=== PATIENT | female | born 1985 | race Caucasian/White ===

== ENCOUNTER 2024-10-06 10:26 | Outpatient (OUT) | payer OTHER, SELFPAY ==
--- OUTSIDE RECORDS SUMMARY | 2024-10-02 20:03 | XMS_ITS | Continuity of Care Document ---
Author Organization [facility] Address [address] [place] [address] Phone Care Team Providers Care Stripper [employer] O[employer] Apprentice Name Role Phone Kashif Theodore DO Primary Care Provider Zev Olivarez DO Emergency Provider [phone] Care Teams Patient Care Team Team Status: Active Member Role Status Dates Kashif Theodore DO Primary Care Provider Active Patient Care Team Team Status: Inactive Member Role Status Dates Kashif Theodore DO Primary Care Provider Active Sta rt: October 02, 2024 End: October 03, 2024 Zev Olivarez DO Emergency Provider Active St art: October 02, 2024 End: October 03, 2024 Chief Complaint and Reason for Visit Chief Complaint Admit Date left knee injury-fall October 02, 2024 9: 59pm Allergies, Adverse Reactions, Alerts Allergen Type Severity Reaction Last Updated Verified Status bupropion Allergy Unknown angry October 02 10:08pm Yes Active adhesive tape Allergy Unknown welts October 02, 2024 10:08pm Yes Active bacitracin Allergy Unknown Rash October 02 10:08pm Yes Active ethinyl estradiol Allergy Unknown Hives October 022024 10:08pm Yes Active neomycin Allergy Unknown Rash October 02 10:08pm Yes Active norgestimate Allergy Unknown Hives October 02, 025 10:08pm Yes Active polymyxin B Allergy Unknown Rash October 02 10:08pm Yes Active red dye Allergy Unknown Anaphylaxis October 02 10:08pm Yes Active Sulfa (Sulfonamide Antibiotics) Allergy Unknown Rash October 02, 2024 10:08pm Yes Active Social History Smoking Status Status Start Date End Date Date of Observa tion Never smoked tobacco (finding) October 02, 2024 11:37pm Observation Status Observation Response Date of Response Legal Sex Female (finding) Sex Assigned At Female [birth year] Status N October 02, 2024 Family History Relationship Condition Age at Onset Recorded Date/T juan aunt Obesity Unknown father Chronic mental illness Unknown Malignant neoplasm of colon Unknown Seizure Unknown Family history of me ntal disorder Unknown Malignant neoplasm Unknown Cerebrovascular accident (CVA) Unknown grandparent Obesity Unknown mother Asthma Unknown maternal grandmother Chronic mental illness Unknown maternal grandfather Heart disease Unknown Malignant neoplasm Unknown paternal grandfather Malignant neoplasm Unknown paternal grandmother Chronic mental illness Unknown Problems Active Problems Medical Problem Onset Date Status Comments Postoperative pain of extremity Unknown Active assisted (current) use of i nhaled steroids Unknown Active Other specified postprocedural states Unknown Act tami Left carpal tunnel syndrome Unknown Active Mild intermittent asthma, uncomplicated Unknown Active Mild persistent asthma, uncomplicated Unknown Act tami PFT: 06/15/2020-FEV1/FVC: 77%-FEV1: 94%-FVC: 103%-OQT95-93%: 68%-Bronchodilator response: None-RV: 80%-T%-DLCO: 79% Family history of colon cancer Unknown Active father paternal uncle Knee sprain Unknown Active Allergic rhinitis due to pollen Unknown Active Palpitations Unknown Active Depression Unknown Active Seasonal allergies Unknown Active Annual physical exam Unknown Active Mixed hyperlipidemia Unknown Active Mass of left wrist Unknown Active Acute bronchitis Unknown Active BMI 39.0-39.9,adult Unknown Active BMI 40.0-44.9, adult Unknown Active Left wrist pain Unknown Active Abnormal finding on mammography Unknown Active Obesity Unknown Active Persistent cough Unknown Active Asthma Unknown Active Attention deficit Unknown Active Inactive/Resolved Problems Medical Problem Onset Date Status Comments Nausea vomiting and diarrhea Unknown Resolved Medications Medication Status Dose Units Route Directions Qty Days St art Date Stop Date End Date Instructions Adherence Prednisone 20 mg tablet Discont inued 20 MG PO As Directed June 04, 2023 12:00a m June 17, 2023 8:52a m BID x 5days then daily x 5 days Azithromyci n (Zithromax Z-Juan Pablo) 250 mg tablet Discont inued 0 PO As Directed 6 June 04, 2023 12:00a m June 17, 2023 8:54a m For 250 mg dose pack: take 500 mg today (day 1), then 250 mg for 4 days (days 2-5) orally as directed; Semaglutide (Ozempic) 2 mg/dose (8 mg/3 mL) pen injector Discont inued 2 MG SUBCUT Once a week 3 June 17, 2023 8:59am August 05, 2023 2:09p m Epinephrine 0.3 mg/0.3 mL auto-inject or Active 0.3 MG IM Every 4 hours as needed for anaphylaxis 2 August 01, 2023 11:02a m Unknown Albuterol Sulfate 90 mcg/actuati on HFA aerosol inhaler Discont inued 2 PUFF INHALA TION Every 6 hours 8.5 August 01, 2023 11:02a m August 05, 2023 2:30p m Omeprazole 20 mg capsule,del ayed release(DR/ EC) Discont inued 20 MG PO Daily 90 August 01, 2023 11:03a m Augus t 2023 1:23p m Azithromyci n (Zithromax Z-Juan Pablo) 250 mg tablet Discont inued 0 PO .COMPLEX 6 2024 1:00am June 08, 2024 1:47p m For 250 mg dose pack: take 500 mg today (day 1), then 250 mg for 4 days (days 2-5) PO Benzonatate 150 mg capsule Discont inued 150 MG PO Three times daily as needed for cough 2024 1:00am 2024 7:45a m Benzonatate 200 mg capsule Discont inued 200 MG PO Three times daily as needed for cough 30 2024 1:00am June 08, 2024 1:47p m Betamethaso ne Valerate 0.1 % cream Discont inued 1 APPLIC TOPICA L Three times daily 45 2024 1:00am May 26, 2024 2:08p m Betamethaso ne Valerate 0.1 % cream Active 1 APPLIC TOPICA L Three times daily 45 May 26, 2024 2:08pm Unknown Prednisone 20 mg tablet Discont inued 20 MG PO .COMPLEX June 02, 2024 12:00a m June 08, 2024 2:05p m 20 mg orally BID x 5 DAYS, QD X 5 DAYS; Benzonatate 200 mg capsule Discont inued 200 MG PO 2-3 TIMES PER DAY as needed for cough June 02, 2024 12:00a m June 08, 2024 2:03p m Cyclobenzap rine 10 mg tablet Active 5 MG PO Daily at bedtime as needed for muscle spasm June 15, 2024 3:20pm Unknown Fluticasone -Umeclidin- Vilanter (Trelegy Ellipta) 200-62.5-25 mcg blister with device Active 1 INH INHALA TION Daily June 15, 2024 3:20pm Unknown Prednisone 20 mg tablet Active 20 MG PO .COMPLEX September 28, 2024 12:00a m 20 mg orally BID for five days, QD for five days; Unknown Prochlorper azine (Compazine) 25 mg suppository Discont inued 25 MG HI Twice daily as needed for nausea and vomiting June 26, 2023 12:00a m Octob er 2023 2:59p m Omeprazole 20 mg capsule,del ayed release(DR/ EC) Discont inued 20 MG PO Every morning 2023 12:00a m Octob er 2023 2:20p m Montelukast (Singulair) 10 mg tablet Discont inued 10 MG PO Every morning 2023 12:00a m Octob er 2023 2:20p m Duloxetine 60 mg capsule,del ayed release(DR/ EC) Discont inued 60 MG PO Every morning 2023 12:00a m Octob er 2023 2:20p m Budesonide- Formoterol (Symbicort) 80-4.5 mcg/actuati on HFA aerosol inhaler Active 2 PUFF INHALA TION Every morning 2023 12:00a m Rinse after use; Dispense #3 inhalers Unknown Acetaminoph en (Acetaminop hen Extra Strength) 500 mg tablet Discont inued 500 MG PO Every 6 hours as needed for fever or pain grace 2023 12:00a m June 08, 2024 2:04p m Loratadine (Allergy Relief (Loratadine )) 10 mg tablet Active 10 MG PO Every morning 2023 12:00a m Unknown Hydrocodone -Acetaminop hen 5-325 mg tablet Discont inued 1 - 2 TAB PO EVERY 4-6 HOURS as needed for pain 30 4 Decobe r 2023June 08, 2024 2:09p m Ciprofloxac in Hcl 500 mg tablet Discont inued 500 MG PO Twice daily 6 3 Decobe r 2023 12:00a m Octob er 2023 7:34a m Semaglutide (Ozempic) 1 mg/dose (4 mg/3 mL) pen injector Discont inued 1 MG SUBCUT every week August 20, 2023 12:00a m Septe mber 2023 9:25a m 18 clicks for 4 weeks and then increase to 36 clicks for 4 weeks and can then increase up to 1 mg dose. Albuterol Sulfate 90 mcg/actuati on HFA aerosol inhaler Discont inued 2 PUFF INHALA TION Every 6 hours 8.5 August 01, 2023 7:39am August 01, 2023 11:03 am Epinephrine 0.3 mg/0.3 mL auto-inject or Discont inued 0.3 MG IM Every 4 hours as needed for anaphylaxis 2 August 01, 2023 7:39am August 01, 2023 11:03 am Omeprazole 20 mg capsule,del ayed release(DR/ EC) Discont inued 20 MG PO Daily August 01, 2023 7:40am August 01, 2023 11:03 am Phentermine (Adipex-P) 37.5 mg tablet Discont inued 37.5 MG PO Daily 30 30 Octobe r 2023 12:00a m Octob er 2023 2:19p m must administer 30 minutes before or 1-2 hours after breakfast Phentermine (Adipex-P) 37.5 mg tablet Discont inued 37.5 MG PO Daily 30 30 2023 2:19pm June 08, 2024 2:07p m must administer 30 minutes before or 1-2 hours after breakfast Duloxetine 60 mg capsule,del ayed release(DR/ EC) Active 60 MG PO Every morning r 2023 2:19pm Unknown Omeprazole 20 mg capsule,del ayed release(DR/ EC) Active 20 MG PO Every morning r 2023 2:19pm Unknown Montelukast (Singulair) 10 mg tablet Active 10 MG PO Every morning r 2023 2:20pm Unknown Levofloxaci n 500 mg tablet Active 500 MG PO Daily 10 June 08, 2024 12:00a m Unknown Hydrocodone -Homatropin e 5-1.5 mg/5 mL (5 mL) syrup Active 5 ML PO EVERY 4-6 HOURS as needed for cough 120 7 June 08, 2024 Unknown Fluticasone -Umeclidin- Vilanter (Trelegy Ellipta) 200-62.5-25 mcg blister with device Discont inued 1 INH INHALA TION Daily June 08, 2024 12:00a m June 15, 2024 3:20p m * 1 sample given Prednisone 20 mg tablet Discont inued 20 MG PO .COMPLEX June 08, 2024 2:05pm September 28, 2024 11:21 am 20 mg orally BID x 7 DAYS, QD X 7 DAYS; Budesonide- Formoterol (Symbicort) 80-4.5 mcg/actuati on HFA aerosol inhaler Discont inued 2 PUFF INHALA TION Daily 30.6 August 05, 2023 2:22pm Septe mber 2023 9:25a m Rinse after use; Dispense #3 inhalers Montelukast (Singulair) 10 mg tablet Discont inued 10 MG PO Daily 90 August 05, 2023 2:23pm Augus t 2023 1:21p m Albuterol-B udesonide (Airsupra) 90-80 mcg/actuati on HFA aerosol inhaler Discont inued 2 INH INHALA TION Four times daily as needed for shortness of breath or wheezing 10.7 30 August 05, 2023 12:00a m June 08, 2024 2:03p m Dispense #1 inhaler Azelastine 205.5 mcg (0.15 %) spray,non-a erosol Discont inued 2 SPRAY INTRAN JERRICA Twice daily 90 90 August 05, 2023 12:00a m Septe mber 2023 9:23a m 2 squirts each nostril twice daily Albuterol Sulfate 90 mcg/actuati on HFA aerosol inhaler Discont inued 2 PUFF INHALA TION Q4H as needed for shortness of breath or wheezing 25.5 90 August 05, 2023 2:29pm August 20, 2023 10:23 am Albuterol Sulfate 5 mg/mL solution for nebulizatio n Active 5 MG INHALA TION Daily as needed for shortness of breath or wheezing June 17, 2023 12:00a m Unknown Albuterol Sulfate 90 mcg/actuati on HFA aerosol inhaler Discont inued 2 PUFF INHALA TION Every 6 hours June 17, 2023 12:00a m August 01, 2023 7:40a m Diphenhydra mine Hcl (Benadryl) 25 mg capsule Discont inued 25 MG PO every 6 to 8 hours as needed for allergic reaction June 17, 2023 12:00a m June 08, 2024 2:03p m Duloxetine 60 mg capsule,del ayed release(DR/ EC) Discont inued 60 MG PO Daily June 17, 2023 12:00a m Octus t 2023 1:21p m Epinephrine 0.3 mg/0.3 mL auto-inject or Discont inued 0.3 MG IM Every 4 hours as needed June 17, 2023 12:00a m August 01, 2023 7:40a m Cyclobenzap rine 10 mg tablet Discont inued 5 MG PO Daily at bedtime as needed for muscle spasm June 17, 2023 12:00a m June 15, 2024 3:20p m Ibuprofen 800 mg tablet Discont inued 800 MG PO Three times daily as needed June 17, 2023 12:00a m Augus t 2023 1:21p m Lorazepam 0.5 mg tablet Discont inued 0.5 MG PO Daily at bedtime as needed June 17, 2023 12:00a m [facility] 2023 9:24a m Norgestrel- Ethinyl Estradiol (Low-Ogestr el (28)) 0.3-30 mg-mcg tablet Active 1 TAB PO Daily June 17, 2023 12:00a m Unknown Melatonin-P yridoxine (Vit B6) 5-1 mg tablet Active 1 TAB PO Daily at bedtime June 17, 2023 12:00a m Unknown Multivitami n (Daily Multi-Vitam in) tablet Discont inued 1 TAB PO Daily June 17, 2023 12:00a m [facility] 2023 9:24a m Omeprazole 20 mg capsule,del ayed release(DR/ EC) Discont inued 20 MG PO Daily June 17, 2023 12:00a m August 01, 2023 7:40a m Ondansetron Hcl 4 mg tablet Discont inued 4 MG PO every 6 to 8 hours as needed June 17, 2023 12:00a m August 20, 2023 10:23 am Semaglutide (Ozempic) 2 mg/dose (8 mg/3 mL) pen injector Discont inued 2 MG SUBCUT Once a week June 17, 2023 12:00a m June 17, 2023 9:01a m Saccharomyc es Boulardii (Daily Probiotic (S. Boulardii)) 250 mg capsule Active 250 MG PO Daily June 17, 2023 12:00a m Unknown Montelukast (Singulair) 10 mg tablet Discont inued 10 MG PO Daily as needed June 17, 2023 12:00a m August 05, 2023 2:30p m Budesonide- Formoterol (Symbicort) 80-4.5 mcg/actuati on HFA aerosol inhaler Discont inued 2 PUFF INHALA TION Daily June 17, 2023 12:00a m August 05, 2023 2:30p m Ubrogepant 50 mg tablet Discont inued 0 PO .COMPLEX as needed June 17, 2023 12:00a m August 05, 2023 2:10p m 50 mg, may take second dose at least 2 hours after first dose orally PRN; Duloxetine 60 mg capsule,del ayed release(DR/ EC) Discont inued 60 MG PO Daily November 12, 2023 1:14pm [facility] 2023 9:25a m Ibuprofen 800 mg tablet Active 800 MG PO Three times daily as needed for pain November 12, 2023 1:14pm Unknown Montelukast (Singulair) 10 mg tablet Discont inued 10 MG PO Daily November 12, 2023 [facility] 9:25a [facility] Duloxetine 30 mg capsule,del ayed release(DR/ EC) Discont inued 30 MG PO Daily November 12, 2023 12:00a m [facility] 9:23a m in addition to 60 mg capsule Omeprazole 20 mg capsule,del ayed release(DR/ EC) Discont inued 20 MG PO Daily November 12, 2023 1:23pm [facility] 2023 9:25a m Immunizations Immunization Event Date Not Given Reason Dose Number Youth Nutritional Monitor Lot Number Vaccine Information Statement (VIS) Detail Administration Location COVID-19 mRNA-1273 (Moderna) March 09, 2020 [id number] [facility] COVID-19 mRNA-1273 (Moderna) April 06, 2020 [id number] [facility] COVID-19 mRNA-1273 (Moderna) January 10, 2021 [id number] Covid Vaccine COVID-19 mRNA-1273 (Moderna) August 09, 2021 COVID-19 (PFIZER) 12Y and older December 24, 2022 DTap, unspecified November 14, 1992 diphtheria, TT and pertussis vaccine 1987 diphtheria, TT and pertussis vaccine 1987 diphtheria, TT and pertussis vaccine 1987 diphtheria, TT and pertussis vaccine September 14, 1988 Hepatitis B, Recombinant May 09, 2022 Influenza, seasonal, injectable, pf November 14, 2018 Novel Influenza H1N1 January 22, 2009 Measles, Mumps, and Rubella Virus Vaccine July 18, 1988 Measles, Mumps, and Rubella Virus Vaccine May 04, 1999 trivalent poliovirus vaccine, live, oral 1987 trivalent poliovirus vaccine, live, oral 1987 trivalent poliovirus vaccine, live, oral September 14, 1988 trivalent poliovirus vaccine, live, oral November 14, 1992 Quadrivalent Influenza December 21, 2022 Trivalent Influenza Vaccine December 07, 2019 Procedures Procedure Date Performed Status XR knee LT 4V* October 02, 2024 10:09pm complete d Relevant Diagnostic Tests and/or Laboratory Data Diagnostic Imaging Reports Author Yeyo Yeung [facility] Report Date/Time October 02, 2024 10:4 5pm [facility] [place] [address] [place] [address] XRay Report Signed Patient: Noris Sprague MR#: [id number] : 1985 Acct:[id number] Age/Sex: 39 / F ADM Date: Loc: ER Room: Type: PRE ER Attending Dr: Copies to: JONO HART~ Ordering Provider: JONO HART Date of Service: 10/02/24 XR/XR knee LT 4V*: Extremity Injury, Lower XR knee LT 4V* 10/02/2024 10:38 PM SIGNS AND SYMPTOMS: Fall, left knee pain PROTOCOL: Frontal, lateral, and oblique radiographs of the left knee COMPARISON: 06/18/2019 FINDINGS: The weightbearing and patellofemoral joint spaces are preserved. There is no fracture or dislocation. No joint effusion or soft tissue swelling. XR/XR knee LT 4V* IMPRESSION: No fracture or dislocation. Impression dictated by: Yeyo Yeung M.D. 10/02/2024 10:45 PM Dictation Location: [place] [address] Transcribed By: [facility] 10/02/242244 Dictated By: Yeyo Yeung II, MD 10/02/242242 Signed By: <Electronically signed by Yeyo Yeung II, MD in [place]> 10/02/242244 Vital Signs Vital Reading Result Reference Range Collection Date/Time Height 58 [in_i] October 02, 2024 10:08pm Weight 99.79 kg October 02, 2024 10:08pm Body Temperature 97.6 [degF] 97.6-99.0 October 02, 2024 10:08pm Heart Rate 98 /min 60-100 October 02, 2024 10:08pm Respiratory rate 18 /min 12-24 October 02, 2024 10:08pm Oxygen saturation by Pulse oximetry 100 % 95-100 October 02, 2024 10:0 8pm BP Systolic 160 mm[Hg] 100-140 October 02, 2024 10:08pm BP Diastolic 94 mm[Hg] 60-100 October 02, 2024 10:08pm Advance Directives Advance Directive Response Recorded Date/ Time Advance Directives No June 08 1:04pm Insurance Providers Guarantor Murali Castro Address [address] [place] [address] [address] [facility] [address] Contact Info. Home Phone: Payer Policy Id Subscriber's Name Subscriber Id Effectiv e Date Expiration Date [facility] [id number] Encounters Encounter Location(s) Arrival/Admit Date Discharge/Depart Date Provider(s) Departed Emergency -Emergency Room October 02, 2024 9:59pm October 03, 2024 12:02am Plan of Treatment Future Tests Future scheduled test information is unavailable Pending Tests Pending diagnostic test information is unavailable Future Visits Future appointment information is unavailable Referrals to Other Providers Reason for Referral Referral Start Date Provider Provider Contact Information Provider Address Sherri Correia DO Email: Work Phone: [address] [facility] [address] [facility] [address] Lorenzo Bradley Jr DO Work Phone: [address] [facility] [address] [facility] [address] Future Procedures Future procedure information is unavailable Future Medications Future medication information is unavailable Patient Instructions Instruction Admit Date Knee Sprain ED October 02, 2024 9:59 pm
--- NOTE | 2024-10-06 | XR_ITS ---
[place] [id number] Patient Name: DAXA REYES MRN: [id number] date: 1985 Sex: F Assigned Patient Location: [facility] Current Patient Location: [facility] Accession/Order Number: [id number] Exam Date: 10/06/2024 10:57 Report Date: 10/06/2024 11:03 At the request of: PRESTON SWARTZ MD Procedure: XR knee LT 4V Single view of the pelvis plain film HISTORY: Acute left knee pain. Fell. Left knee arthroscopy. COMPARISON: None ACUTE FINDINGS: None BONY ALIGNMENT: Adequate SOFT TISSUES: Unremarkable DEGENERATIVE CHANGE:Unremarkable INTRAPELVIC STRUCTURES: Unremarkable POSTSURGICAL CHANGES:None XR/XR knee RT 2V IMPRESSION:Unremarkable exam. 4 views left knee Standing position. No joint effusion. Adequate alignment. No acute displaced fracture. No significant degeneration. IMPRESSION: Unremarkable exam 2 views right knee Adequate alignment. No acute displaced fracture. No significant degeneration. IMPRESSION: Unremarkable exam Impression dictated by: Renzo Claros M.D. 10/06/2024 11:03 AM Dictation Location: [facility] Electronically authenticated by: [id number] Y Date: 10/06/2024 11:03
--- NOTE | 2024-10-06 | XR_ITS ---
[place] [id number] Patient Name: DAXA REYES MRN: [id number] date: 1985 Sex: F Assigned Patient Location: [facility] Current Patient Location: [facility] Accession/Order Number: [id number] Exam Date: 10/06/2024 10:57 Report Date: 10/06/2024 11:03 At the request of: PRESTON SWARTZ MD Procedure: XR knee LT 4V Single view of the pelvis plain film HISTORY: Acute left knee pain. Fell. Left knee arthroscopy. COMPARISON: None ACUTE FINDINGS: None BONY ALIGNMENT: Adequate SOFT TISSUES: Unremarkable DEGENERATIVE CHANGE:Unremarkable INTRAPELVIC STRUCTURES: Unremarkable POSTSURGICAL CHANGES:None XR/XR knee LT 4V IMPRESSION:Unremarkable exam. 4 views left knee Standing position. No joint effusion. Adequate alignment. No acute displaced fracture. No significant degeneration. IMPRESSION: Unremarkable exam 2 views right knee Adequate alignment. No acute displaced fracture. No significant degeneration. IMPRESSION: Unremarkable exam Impression dictated by: Renzo Claros M.D. 10/06/2024 11:03 AM Dictation Location: [facility] Electronically authenticated by: [id number] Y Date: 10/06/2024 11:03
--- NOTE | 2024-10-06 | XR_ITS ---
[place] [id number] Patient Name: DAXA REYES MRN: [id number] date: 1985 Sex: F Assigned Patient Location: [facility] Current Patient Location: [facility] Accession/Order Number: [id number] Exam Date: 10/06/2024 10:57 Report Date: 10/06/2024 11:03 At the request of: PRESTON SWARTZ MD Procedure: XR knee LT 4V Single view of the pelvis plain film HISTORY: Acute left knee pain. Fell. Left knee arthroscopy. COMPARISON: None ACUTE FINDINGS: None BONY ALIGNMENT: Adequate SOFT TISSUES: Unremarkable DEGENERATIVE CHANGE:Unremarkable INTRAPELVIC STRUCTURES: Unremarkable POSTSURGICAL CHANGES:None XR/XR pelvis 1-2V IMPRESSION:Unremarkable exam. 4 views left knee Standing position. No joint effusion. Adequate alignment. No acute displaced fracture. No significant degeneration. IMPRESSION: Unremarkable exam 2 views right knee Adequate alignment. No acute displaced fracture. No significant degeneration. IMPRESSION: Unremarkable exam Impression dictated by: Renzo Claros M.D. 10/06/2024 11:03 AM Dictation Location: [facility] Electronically authenticated by: [id number] Y Date: 10/06/2024 11:03
--- OUTSIDE RECORDS SUMMARY | 2024-10-06 10:28 | XMS_ITS | Encounter Summary ---
Author Organization [facility] Address [address] [place] [address] Care Team Providers Care Nursery Rn Name Role Phone Alex Theodore DO Primary Care Provider [phone] Encounter Details Date Type Department Care Team (Late st Contact Info) Description 08/14/2022 Abstract [facility] [address] [facility] [address] [place] [address] Marek Zapata, DO [address] [facility] [address] [facility] [address] [place] [address] Social History Tobacco Use Types Packs/Day Years Used Date Smoking Tobacco: Never Tobacco Cessation:Counseling Given: Not Answered Alcohol Use Standard Drinks/Week Comments Never 0 (1 standard drink = 0.6 oz pure alcohol) Caffeine intake: 1-2 cups per day of coffee and soda/pop AUDIT-C Answer Date Recorded Q1: How often do you have a drink containing alcohol? Never 08/15/2022 Q2: How many drinks containi ng alcohol do you have on a typical day when you are drinking? Patient does not drink Q3: How often do you have si x or more drinks on one occasion? 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 No / Unsure 08/14/2022 2:36 PM EDT documented as of this encounter Functional Status * Audit-C Score Answer Date of Assessment Author 0 08/15/2022 3:10 PM EDT Jude Ta MA * Question Answer Date of Assessment Author Q1: How often do you have a drink containing alcohol? Never 08/15/2022 3:10 PM EDT Idalmis Ta MA Q2: How many drinks containing alcohol do you have on a typical day when you are drinking? Patient does not drink 08/15/2022 3:10 PM EDT Idalmis Ta MA Q3: How often do you have six or more drinks on one occasion? Never 08/15/2022 3:10 PM EDT Idalmis Ta MA * Over the past 2 weeks, how often have you been bothered by any of the following problems? Question Answer Date of Assessment Author Little interest or pleasure in doing things Not at all 08/15/2022 3:10 PM EDT Idalmis Ta MA Feeling down, depressed, or hopeless Not at all 08/15/2022 3:10 PM EDT Idalmis Ta MA Patient Health Questionnaire -2 Score 0 08/15/2022 3:10 PM EDT Idalmis Ta MA documented as of this encounter Plan of Treatment Upcoming Encounters Date Type Department Care Team (Late st Contact Info) Description 10/08/2024 3:15 PM EDT Office Visit [facility] [address] [place] [address] Marek Zapata DO [address] [place] [address] documented as of this encounter Visit Diagnoses Not on filedocumented in this encounter Care Teams Nursery Rn Relationship Specialty Start Date End Date Alex Theodore DO PCP - General Family Medicine 08/15/22 documented as of this encounter
--- OUTSIDE RECORDS SUMMARY | 2024-10-06 10:28 | XMS_ITS | Encounter Summary ---
Author Organization [facility] Address [address] [place] [address] Care Team Providers Care Service Counter Cashier Name Role Phone Alex Theodore DO Primary Care Provider [phone] Encounter Details Date Type Department Care Team (Late st Contact Info) Description 01/25/2023 Orders Only [facility] [address] [facility] [address] [place] [address] Marek Zapata, [address] [facility] [address] [place] [address] Social History Tobacco Use Types Packs/Day Years Used Date Smoking Tobacco: Never Smokeless Tobacco: Never Alcohol Use Standard Drinks/Week Comments Never 0 [...] Patient Health Questionnaire-2 Score 0 08/15/2022 Comments No Sex and Gender Information Value Date Recorded Sex Assigned at Female 08/14/2022 2:18 PM EDT Legal Sex Female 6:54 PM EDT Gender Identity Female 08/14/2022 2:18 PM EDT Sexual Orientation Straight 08/14/2022 2: 18 PM EDT 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 on file Not on file Not on file documented as of this encounter Plan of Treatment Upcoming Encounters Date Type Department Care Team (Late st Contact Info) Description 10/08/2024 3:15 PM EDT Office Visit [facility] [address] [place] [id number] Marek Zapata DO [address] [place] [address] documented as of this encounter Procedures Procedure Name Priority Date/Time Associated Diagnosis Comments MAMMOGRAM-DIAGNOSTIC* Routine 01/25/2023 10:54 AM EST documented in this encounter Results * MAMMOGRAM-DIAGNOSTIC* (01/25/2023 10:54 AM EST) Anatomical Region Laterality Modality Radiographic Deborah ging us Marek Zapata DO IMG XR PROCEDURES Final Resul t documented in this encounter Visit Diagnoses Not on filedocumented in this encounter Care Teams Service Counter Cashier Relationship Specialty Start Date End Date Alex Theodore DO PCP - General Family Medicine 08/15/22 documented as of this encounter
--- OUTSIDE RECORDS SUMMARY | 2024-10-06 10:28 | XMS_ITS | Encounter Summary ---
Author Organization [facility] Address [address] [place] [address] Phone Care Team Providers Care Vinyl Installer Name Role Phone Jesús Azevedo MD Primary Care Provider Encounter Details Date Type Department Care Team (Late st Contact Info) Description 12/06/2023 Scanned Document [facility] [address] [place] [address] Scanning, Generic Provider Social History Tobacco Use Types Packs/Day Years Used Date Smoking Tobacco: Never Assessed Comments Unknown Sex and Gender Information Value Date Recorded Sex Assigned at Not on file Legal Sex Female 5:01 PM EST Gender Identity Not on file Sexual Orientation Not on file documented as of this encounter Plan of Treatment Not on file documented as of this encounter Procedures Procedure Name Priority Date/Time Associated Diagnosis Comments HOLTER AND CARDIAC EVENT MONITOR - ONBASE SCAN 12/06/2023 ECHOCARDIOGRAM 12/06/2023 documented in this encounter Results * Holter and Cardiac Event Monitor - Onbase Scan (12/06/2023) Narrative 12/06/2023 Ordered by an unspecified provider. us Generic Provider Scanning CV CARDIAC SERVICES DE OCEDURES Final Result * Echocardiogram (12/06/2023) Narrative 12/06/2023 Ordered by an unspecified provider. us Generic Provider Scanning CV ECHO PROCEDURES Fin al Result documented in this encounter Visit Diagnoses Not on filedocumented in this encounter Care Teams Vinyl Installer Relationship Specialty Start Date End Date Jesús Azevedo MD [address] [place] [address] PCP - General 09/22/19 documented as of this encounter
--- OUTSIDE RECORDS SUMMARY | 2024-10-06 10:28 | XMS_ITS | Clinical Summary ---
Author Organization [facility] Address [address] [place] [address] Phone Care Team Providers Care Community Service Technician Name Role Phone Jesús Azevedo MD Primary Care Provider [phone] Social History Tobacco Use Types Packs/Day Years Used Date Smoking Tobacco: Never Assessed Comments Unknown Sex and Gender Information Value Date Recorded Sex Assigned at Not on file Legal Sex Female 5:01 PM EST Gender Identity Not on file Sexual Orientation Not on file Plan of Treatment Health Maintenance Due Date Last Done Comments HIV Screening 1987 Lipid Panel 1987 Yearly Adult Physical 1987 MMR Vaccines (1 of 1 - Stand toma series) 1988 Varicella Vaccines (1 of 2 - 13+ 2-dose series) 2000 Hepatitis C Screening 2005 Hepatitis B Vaccines (1 of 3 - 19+ 3-dose series) 2006 Cervical Cancer Screening 2008 HPV/Cotest 2008 Pap Smear 2008 DTaP/Tdap/Td Vaccines (1 - Tdap) 2009 HPV Vaccines (1 - 3-dose sta ndard series) 2014 COVID-19 Vaccine (1 - 2023-2 5 season) 2023 Influenza Vaccine (#1) 2024 Zoster Vaccines (1 of 2) 2037 HIB Vaccines Aged Out No longer eligi ble based on patient's age to complete this topic Hepatitis A Vaccines Aged Out No long er eligible based on patient's age to complete this topic IPV Vaccines Aged Out No longer eligi ble based on patient's age to complete this topic Meningococcal Vaccine Aged Out No luiza rosaura eligible based on patient's age to complete this topic Pneumococcal Vaccine: Pediat rics and At-Risk Adult Patients Aged Out No longer joaquín gible based on patient's age to complete this topic Rotavirus Vaccines Aged Out No longer eligible based on patient's age to complete this topic Insurance [facility] [place] [id number] [facility] Member Subscriber Plan / Payer ( fective 2023-Present) Name:Noris Sprague Relation to Subscriber:Self Name:Noris Sprague Payer ID:Not on file Type:Not on file Address: [place] [phone] [facility] [place] [id number] [facility] Care Teams Community Service Technician Relationship Specialty Start Date End Date Jesús Azevedo MD [address] [place] [phone] PCP - General 09/22/19
--- OUTSIDE RECORDS SUMMARY | 2024-10-06 10:28 | XMS_ITS | Clinical Summary ---
Author Organization [employer] [facility] [facility] Address [id number] [place] [id number] Care Team Providers Care Interior Paneler Name Role Phone Jesús Azevedo MD Primary Care Provider [phone] Allergies Active Allergy Reactions Criticality Noted Date Comments Adhesive Hives 09/23/2019 Red Dye 09/23/2019 Sulfa (Sulfonamide Antibiotics) 10/2019 Medications omeprazole (PriLOSEC) 20 mg capsule Take 20 mg by mouth daily. Active albuterol (PROVENTIL HFA;VENTOLIN HFA) 90 mcg/actuation inhaler Inhale 2 puffs every 6 (six) hours as needed for wheezing. Active EPINEPHrine (EPIPEN 2-ANNIE) 0.3 mg/0.3 mL auto-injector Inject 0.3 mg into the appropriate muscle as needed. Active albuterol (PROVENTIL,VENTOLI N) 2.5 mg /3 mL (0.083 %) nebulizer solution Inhale 2.5 mg by nebulization every 6 (six) hours as needed for wheezing. Active LORazepam (ATIVAN) 0.5 mg tablet Take 0.5 mg by mouth every 6 (six) hours as needed for anxiety. Active norgestrel-ethinyl estradioL (LOW-OGESTREL,AGUSTIN DAQUAN) 0.3-30 mg-mcg per tablet Take 1 tablet by mouth daily. Active ibuprofen (ADVIL,MOTRIN) 800 mg tablet Take 800 mg by mouth every 6 (six) hours as needed for pain. Active DULoxetine (CYMBALTA) 60 mg capsule Take 60 mg by mouth daily. Active montelukast (SINGULAIR) 10 mg tablet Take 10 mg by mouth nightly. Active ondansetron ODT (ZOFRAN-ODT) 4 mg disintegrating tablet Dissolve 4 mg on tongue every 8 (eight) hours as needed for nausea or vomiting. Active rizatriptan (MAXALT) 5 mg tablet Take 5 mg by mouth once as needed for migraine. May repeat in 2 hours if unresolved. Do not exceed 30 mg in 24 hours. Active cyclobenzaprine (FLEXERIL) 5 mg tablet Take 10 mg by mouth 3 (three) times a day as needed for muscle spasms. Active diphenhydrAMINE (SOMINEX) 25 mg tablet Take 25 mg by mouth nightly as needed for sleep. Active famotidine (PEPCID) 20 mg tablet Take 20 mg by mouth 2 (two) times a day. Active loratadine (CLARITIN) 10 mg tablet Take 10 mg by mouth daily. Active acidophilus-pectin , citrus 100 million cell-10 mg capsule Take by mouth 3 (three) times a day with meals. Active Active Problems Problem Noted Date Diagnosed Date Bilateral fibrocystic breast changes 09/23/2019 Asthma 09/23/2019 Thyroid nodule 09/23/2019 Seasonal allergies 09/23/2019 Internal derangement of left knee 09/23/2019 Social History Tobacco Use Types Packs/Day Years Used Date Smoking Tobacco: Never Assessed Childcare Answer Date Recorded Childcare Unknown 09/08/2019 Employment Answer Date Recorded Employment Unknown 09/08/2019 Purpose - Life Answer Date Recorded Purpose and direction in life Unknown Comments Unknown Sex and Gender Information Value Date Recorded Sex Assigned at Not on file Legal Sex Female 9:05 AM EDT Gender Identity Not on file Sexual Orientation Not on file Plan of Treatment Health Maintenance Due Date Last Done Comments Depression Screening 1999 Tobacco Screening 1999 Adult BMI Screening 2005 DTaP,Tdap and Td Vaccines (1 - Tdap) 2006 Pap Smear 2008 Influenza Vaccine 11/16/2024 Medical Devices Not on file Insurance [employer] Care Teams Interior Paneler Relationship Specialty Start Date End Date Jesús Azevedo MD [address] [place] [address], [address] [place] [address] PCP - General Internal Medicine 09/08/19
--- OUTSIDE RECORDS SUMMARY | 2024-10-06 10:28 | XMS_ITS | Clinical Summary ---
Author Organization [facility] Address [address] [place] [address] Care Team Providers Care Machine Chain Maker Name Role Phone Alex Theodore DO Primary Care Provider [phone] Allergies Active Allergy Reactions Criticality Noted Date Comments Bupropion Other 08/15/2022 Neomycin-Bacitracin Zn-Polymyx Hives,Swelling 08/15/2022 Red Dye #40 (Allura Red) Unknown 08/22/2023 Sulfa Antibiotics Hives,Rash Low 09/23/2019 Wound Dressing Adhesive Hives 09/23/2019 Other Reaction(s): hives Medications rizatriptan LAP CUTTER TRUER OPERATOR (Maxalt-LAP CUTTER TRUER OPERATOR) 5 MG disintegrating tablet Take 5 mg by mouth 1 (one) time each day at the same time. Active albuterol HFA 90 mcg/act inhaler Inhale 2 puffs every 6 (six) hours if needed. Active albuterol (2.5 MG/3ML) 0.083% nebulizer solution Inhale 2.5 mg every 6 (six) hours if needed for wheezing. Active budesonide-formoter ol (Symbicort) 160-4.5 MCG/ACT inhaler Inhale 2 puffs in the morning. Active cetirizine (ZyrTEC ALLERGY) 10 MG tablet Take 10 mg by mouth in the morning. Active cyclobenzaprine (Flexeril) 5 MG tablet Take 10 mg by mouth 3 (three) times a day as needed. Active diphenhydrAMINE (Benadryl Allergy) 25 MG tablet Take 25 mg by mouth as needed at bedtime for itching or allergies. Active DULoxetine (Cymbalta) [address] capsule Take 60 mg by mouth in the morning. Active EPINEPHrine (Epipen) 0.3 MG/0.3ML injection syringe Inject 1 Syringe as directed Daily as needed. Active famotidine (Pepcid) 20 MG tablet Take 20 mg by mouth in the morning. Active Fluticasone Propionate (FLONASE ALLERGY RELIEF NA) Daily as needed. Active guaiFENesin (Mucinex) 600 MG 12 hr tablet Take 600 mg by mouth Daily as needed. Active ibuprofen 800 MG tablet Take 800 mg by mouth in the morning and 800 mg in the evening and 800 mg before bedtime. Active melatonin 3 MG tablet Take 3 mg by mouth at bedtime. Active montelukast (Singulair) 10 MG tablet Take 10 mg by mouth in the evening. Active Multiple Vitamin (MULTI-VITAMIN DAILY PO) Active Ozempic, 1 MG/DOSE, 4 MG/3ML solution pen-injector Inject 1 mg under the skin 1 (one) time per week 4 Active saccharomyces boulardii (Florastor) 250 MG capsule Take 250 mg by mouth in the morning and 250 mg before bedtime. 4 Active omeprazole (PriLOSEC) [address] capsule Take 20 mg by mouth Daily 4 Active spironolactone (Aldactone) 25 MG tabletIndications:H irsutism Take 1 tablet (25 mg) by mouth in the morning and 1 tablet (25 mg) before bedtime. 180 tablet 3 4 Active Low-Ogestrel 0.3-30 MG-MCG tabletIndications:E ncounter for gynecological examination (general) (routine) without abnormal findings TAKE 1 TABLET BY MOUTH ONCE DAILY IN THE MORNING 84 tablet 3 5 Active Family History Medical History Relation Name Comments Blindness Father Edison Sprague Cancer Father Edison Sprague Other Father Edison Sprague ARMD Seizures Father Edison Sprague Stroke Father Edison Sprague Colon cancer Father's Brother Diabetes Maternal Grandmother Kate Barrett Hypertension Maternal Grandmother Kate Barrett Breast cancer Maternal Great-Grandmother Asthma Mother Kyra Celestine Hyperlipidemia Mother Kyra Celestine Migraines Mother Kyra Nanticoke Osteoarthritis Mother Kyra N[place]oke Rashes / Skin problems Mother Kyra N[place]oke Breast cancer Mother's Sister Kari Hernandezer Cancer Mother's Sister Kari Linares Thyroid disease Mother's Sister Kari Linares Breast cancer Other Cancer Paternal Grandfather Hans Sprague Relation Name Status Comments Father Edison Sprageu Father's Brother Alive Maternal Grandmother Kate Barrett Maternal Great-Grandmother Alive Mother Kyra Sprague Alive Mother's Sister Kari Linares Alive Other Maternal great aunt Paternal Grandfather Hans Sprague Social History Tobacco Use Types Packs/Day Years Used Date Smoking Tobacco: Never Smokeless Tobacco: Never Tobacco Cessation:Counseling Given: Not Answered Alcohol Use Standard Drinks/Week Comments Never 1 (1 standard drink = 0.6 oz pur e alcohol) A month AUDIT-C Answer Date Recorded Q1: How often do you have a drink containing alcohol? Never 10/07/2023 Q2: How many drinks containi ng alcohol do you have on a typical day when you are drinking? Patient does not drink Q3: How often do you have si x or more drinks on one occasion? 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[employer] Not on file Not on file Not on file Last Filed Vital Signs Vital Sign Reading Time Taken Comments Blood Pressure 124/74 10/07/2023 12:11 PM EDT Pulse - - Temperature - - Respiratory Rate - - Oxygen Saturation - - Inhaled Oxygen Concentration - - Weight 88 kg (194 lb) 10/07/2023 12:11 PM EDT Height 147.3 cm (4' 10 ) 10/07/2023 12:11 PM EDT Body Mass Index 40.55 10/07/2023 12:11 PM EDT Plan of Treatment Upcoming Encounters Date Type Department Care Team (Late st Contact Info) Description 10/08/2024 3:15 PM EDT Office Visit [facility] [address] [place] [address] Marek Zapata DO [address] [place] [address] Health Maintenance Due Date Last Done Comments Pap Smear 2008 Cervical Cancer Screening 2017 HPV/Cotest 2017 Influenza Vaccine (#1) 2024 12/21/2022, 2021, 11/14/2018 Insurance [employer] Care Teams Machine Chain Maker Relationship Specialty Start Date End Date Alex Theodore DO PCP - General Family Medicine 08/15/22
--- OUTSIDE RECORDS SUMMARY | 2024-10-06 10:28 | XMS_ITS | Encounter Summary ---
Author Organization [facility] Address [address] [place] [address] Care Team Providers Care Shared Services And Outsourcing Manager Name Role Phone Alex Theodore DO Primary Care Provider [phone] Encounter Details Date Type Department Care Team (Late st Contact Info) Description 02/05/[address] [facility] [address] [facility] [address] [place] [address] Ahmet Dow DO [address] 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 Not on file Not on file documented as of this encounter Plan of Treatment Upcoming Encounters Date Type Department Care Team (Late st Contact Info) Description 10/08/2024 3:15 PM EDT Office Visit [facility] [address] [place] [address] Marek Zapata DO [address] [place] [address] documented as of this encounter Procedures Procedure Name Priority Date/Time Associated Diagnosis Comments BI CORE NEEDLE BIOPSY RIGHT Routine 02/05/2023 1:21 PM EST documented in this encounter Results * BI core needle biopsy right (02/05/2023 1:21 PM EST) Anatomical Region Laterality Modality Breast Right Mammography Ahmet Dow DO IMG BI PROCEDURES Final R esult documented in this encounter Visit Diagnoses Not on filedocumented in this encounter Care Teams Shared Services And Outsourcing Manager Relationship Specialty Start Date End Date Alex Theodore DO PCP - General Family Medicine 08/15/22 documented as of this encounter
--- OUTSIDE RECORDS SUMMARY | 2024-10-06 10:28 | XMS_ITS | Encounter Summary ---
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 Not on file Not on file documented as of this encounter Plan of Treatment Upcoming Encounters Date Type Department Care Team (Late st Contact Info) Description 10/08/2024 3:15 PM EDT Office Visit [facility] [address] [place] [address] Marek Zapata DO [address] [place] [address] documented as of this encounter Procedures Procedure Name Priority Date/Time Associated Diagnosis Comments BI MAMMOGRAM SCREENING BILATERAL 01/24/2023 11:46 AM EST documented in this encounter Results * Bilateral screening mammogram (01/24/2023 11:46 AM EST) Anatomical Region Laterality Modality Breast Bilateral Mammography 01/24/2023 11:4 6 AM EST Impressions 02/05/2023 9:13 AM EST BILATERAL FOCAL ASYMMETRIES ARE NOTED. FURTHER EVALUATION WITH SPOT COMPRESSED VIEWS AND ULTRASOUND IF NECESSARY IS RECOMMENDED. RESULT CODE: 0 Incomplete:Needs Additional Imaging Evaluation DENSITY CODE: 2 (approximately 25-50% glandular) FOLLOW UP: ADD The false-negative rate of mammography is approximately 10-percent. Management of a palpable abnormality must be based on clinical grounds. Patient was entered into a reminder system with a target due date for the next mammogram. Impression dictated by: Yeyo Yeung M.D.01/24/2023 11:52 AM Dictation Location: [facility] Transcribed By: [facility] 01/24/23 1152 Dictated By: Yeyo Yeung II, MD 01/24/23 1146 Signed By: <Electronically signed by Yeyo Yeung II, MD in OV> 01/24/23 1152 Narrative 02/05/2023 9:13 AM EST [facility] Main [address] [address] Mammography Report Signed Patient: Noris Sprague MR#: [id number] 18 : 1985 Acct:[id number] Age/Sex: 37 / F ADM Date: 01/24/23 Loc: MD Room: Type: [facility] CLI Attending Dr: Marek Zapata DO Copies to: DO Marek Aburto DO Ordering Provider: Marek Zapata DO Date of Service: 01/24/23 MM/MM screening mammo BI w/CAD: SCREENING CLINICAL DATA: Screening for malignancy. BILATERAL SCREENING MAMMOGRAMS - FULL FIELD DIGITAL WITH TOMOSYNTHESIS AND CAD Tomosynthesis craniocaudal and mediolateral oblique views of both breasts were obtained using low- dose digital technique. This is a baseline study. This examination was reviewed with the aid of CAD. There are scattered fibroglandular densities. There is a 1.5 cm asymmetry medially in the right breast 5 cm from the nipple medially at the 3:00 position. There is a second 0.9 cm focal asymmetry laterally in the right breast 14 cm from the nipple at approximately the 9:00 position. There is a third focal asymmetry slightly medial and posterior to this. There is a 0.7 cm of focal asymmetry in the retroareolar region on the left slightly inferiorly at the 6:00 position. There is a 0.3 cm focal asymmetries medially and inferiorly on the left at approximately the 7:00 position 4.5 cm from the nipple. MM/MM screening mammo BI w/CAD Procedure Note Radiology, Radiologist, - 02/05/2023 [place] [address] Mammography Report Signed Patient: Noris Sprague MMR#: [id number] 18 : 1985Acct:[id number] Age/Sex: 37 / FADM Date: 01/24/23 Loc: MD Room:Type: [facility] CLI Attending Dr: Marek Zapata DO Copies to: DO Marek Aburto DO Ordering Provider: Marek Zapata DO Date of Service: 01/24/23 MM/MM screening mammo BI w/CAD: SCREENING CLINICAL DATA: Screening for malignancy. BILATERAL SCREENING MAMMOGRAMS - FULL FIELD DIGITAL WITH TOMOSYNTHESIS ANDCAD Tomosynthesis craniocaudal and mediolateral oblique views of both breastswere obtained using low- dose digital technique. This is a baseline study. This examination wasreviewed with the aid of CAD. There are scattered fibroglandular densities. There is a 1.5 cm asymmetrymedially in the right breast 5 cm from the nipple medially at the 3:00 position. There is asecond 0.9 cm focal asymmetry laterally in the right breast 14 cm from the nipple at approximately the9:00 position. There is a third focal asymmetry slightly medial and posterior to this. There is a0.7 cm of focal asymmetry in the retroareolar region on the left slightly inferiorly at the 6:00position. There is a 0.3 cm focal asymmetries medially and inferiorly on the left at approximately the7:00 position 4.5 cm from the nipple. MM/MM screening mammo BI w/CAD IMPRESSION: BILATERAL FOCAL ASYMMETRIES ARE NOTED. FURTHER EVALUATION WITH SPOT COMPRESSED VIEWS AND ULTRASOUND IF NECESSARYIS RECOMMENDED. RESULT CODE: 0 Incomplete:Needs Additional Imaging Evaluation DENSITY CODE: 2 (approximately 25-50% glandular) FOLLOW UP: ADD The false-negative rate of mammography is approximately 10-percent. Management of a palpable abnormality must be based on clinical grounds. Patient was entered into a reminder system with a target due date for thenext mammogram. Impression dictated by: Yeyo Yeung M.D.01/24/2023 11:52 AM Dictation Location: [facility] Transcribed By: [facility] 01/24/23 1152 Dictated By: Yeyo Yeung II, MD 01/24/23 1146 Signed By: <Electronically signed by Yeyo Yeung II, MD inO> 01/24/23 1152 Marek Zapata DO IMG BI PROCEDURES Final Resul t documented in this encounter Visit Diagnoses Not on filedocumented in this encounter Care Teams Yarn Comber Relationship Specialty Start Date End Date Alex Theodore DO PCP - General Family Medicine 08/15/22 documented as of this encounter
--- OUTSIDE RECORDS SUMMARY | 2024-10-06 10:28 | XMS_ITS | Encounter Summary ---
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 Not on file Not on file documented as of this encounter Plan of Treatment Upcoming Encounters Date Type Department Care Team (Late st Contact Info) Description 10/08/2024 3:15 PM EDT Office Visit [facility] [address] [place] [phone] Marek Zapata DO [address] [place] [address] documented as of this encounter Procedures Procedure Name Priority Date/Time Associated Diagnosis Comments MAMM BILATERAL DIAG W/CAD (D) Routine 02/04/2023 11:59 AM EST documented in this encounter Results * MAMM BILATERAL DIAG W/CAD (D) (02/04/2023 11:59 AM EST) Anatomical Region Laterality Modality Radiographic Deborah ging us Marek Zapata DO IMG XR PROCEDURES Final Resul t documented in this encounter Visit Diagnoses Not on filedocumented in this encounter Care Teams Medical Anthropologist Relationship Specialty Start Date End Date Alex Theodore DO PCP - General Family Medicine 08/15/22 documented as of this encounter
--- OUTSIDE RECORDS SUMMARY | 2024-10-06 10:28 | XMS_ITS | Encounter Summary ---
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 Not on file Not on file documented as of this encounter Plan of Treatment Upcoming Encounters Date Type Department Care Team (Late st Contact Info) Description 10/08/2024 3:15 PM EDT Office Visit [facility] [address] [place] [address] TommyMarek brower, DO [address] [place] [address] documented as of this encounter Procedures Procedure Name Priority Date/Time Associated Diagnosis Comments BI US BREAST LIMITED BILATERAL 01/30/2023 9:43 AM EST documented in this encounter Results * Bilateral breast US limited (01/30/2023 9:43 AM EST) Anatomical Region Laterality Modality Breast Bilateral Ultrasound 01/30/2023 9:43 AM EST Impressions 02/04/2023 11:34 AM EST BILATERAL CLUSTERED MICROCYSTS AND LEFT RETROAREOLAR DUCT ECTASIA. SIX-MONTH ULTRASOUND FOLLOW-UP IS SUGGESTED TO ASSESS STABILITY. INDETERMINANT, ELONGATE HYPOECHOIC AREA AT THE MEDIAL RIGHT BREAST. DUE TO FAMILY HISTORY OF BREAST CANCER, PATIENT WOULD PREFER TO HAVE THIS AREA BIOPSIED UNDER ULTRASOUND. RESULT CODE: 4 Suspicious Abnormality - Biopsy Considered DENSITY CODE: 1 (<25% glandular) FOLLOW UP: BIO The false-negative rate of mammography is approximately 10-percent. Management of a palpable abnormality must be based on clinical grounds. Patient was entered into a reminder system with a target due date for the next mammogram. Impression dictated by: Yancy Carroll M.D.01/30/2023 11:30 AM Dictation Location: [facility] Transcribed By: [facility] 01/30/23 1130 Dictated By: Yancy Carroll MD 01/30/23 0943 Signed By: <Electronically signed by MD Yancy Carroll in OV> 01/30/23 1130 Narrative 02/04/2023 11:34 AM EST [facility] Main [place] [address] [place] [address] Mammography Report Signed Patient: Noris Sprague MR#: [id number] 18 : 1985 Acct:[id number] Age/Sex: 37 / F ADM Date: 01/30/23 Loc: [place] Room: Type: REG CLI Attending Dr: Marek Zapata DO Copies to: DO Marek Aburto DO Ordering Provider: Marek Zapata DO Date of Service: 01/30/23 MM/MM special view BI w/CAD: R92.8 ([id number]) US/US breast BI limited: R92.8 CLINICAL DATA: Follow-up asymmetries on baseline mammogram. BILATERAL DIAGNOSTIC MAMMOGRAMS - FULL FIELD DIGITAL WITH TOMOSYNTHESIS AND CAD Tomosynthesis true lateral and spot compression craniocaudal and mediolateral oblique views of both breasts were obtained using low-dose digital technique. Comparison is made to prior study from January 24, 2023. This examination was reviewed with the aid of CAD. The breast parenchyma has been largely replaced by fat. Asymmetries described at the time of the comparison exam are reproduced. There are no typically malignant calcifications or distortion. BILATERAL LIMITED BREAST ULTRASOUND Real-time ultrasound evaluation of the medial right breast shows somewhat elongate hypoechoic area with slight lobulation measuring 13 x 3 x 5 mm in size. This correlates with the mammographic finding. At the upper outer breast approximately 14 cm from the nipple there are tubular and clustered small cystic areas with the largest measuring 6 x 2 x 5 mm. On the left in the retroareolar region, there is minor duct ectasia and some tiny cystic areas. At the 7:00 position, 4 cm from the nipple there is a small suspected cluster of microcysts measuring 3 x 2 x 4 mm. MM/MM special view BI w/CAD Procedure Note Radiology, Radiologist, MD - 02/04/2023 [facility] Main [place] [address] [place] [address] Mammography Report Signed Patient: Noris Sprague MMR#: [id number] 18 : 1985Acct:[id number] Age/Sex: 37 / FADM Date: 01/30/23 Loc: [place] Room:Type: REG CLI Attending Dr: Marek Zapata DO Copies to: DO Marek Aburto DO Ordering Provider: Marek Zapata DO Date of Service: 01/30/23 MM/MM special view BI w/CAD: R92.8 ([id number]) US/US breast BI limited: R92.8 CLINICAL DATA: Follow-up asymmetries on baseline mammogram. BILATERAL DIAGNOSTIC MAMMOGRAMS - FULL FIELD DIGITAL WITH TOMOSYNTHESISAND CAD Tomosynthesis true lateral and spot compression craniocaudal andmediolateral oblique views of both breasts were obtained using low-dose digital technique. Comparison ismade to prior study from January 24, 2023. This examination was reviewed with the aid of CAD. The breast parenchyma has been largely replaced by fat. Asymmetriesdescribed at the time of the comparison exam are reproduced. There are no typically malignantcalcifications or distortion. BILATERAL LIMITED BREAST ULTRASOUND Real-time ultrasound evaluation of the medial right breast shows somewhatelongate hypoechoic area with slight lobulation measuring 13 x 3 x 5 mm in size. This correlateswith the mammographic finding. At the upper outer breast approximately 14 cm from the nipplethere are tubular and clustered small cystic areas with the largest measuring 6 x 2 x 5 mm. On the left in the retroareolar region, there is minor duct ectasia andsome tiny cystic areas. At the 7:00 position, 4 cm from the nipple there is a small suspected clusterof microcysts measuring 3 x 2 x 4 mm. MM/MM special view BI w/CAD IMPRESSION: BILATERAL CLUSTERED MICROCYSTS AND LEFT RETROAREOLAR DUCT ECTASIA.SIX-MONTH ULTRASOUND FOLLOW-UP IS SUGGESTED TO ASSESS STABILITY. INDETERMINANT, ELONGATE HYPOECHOIC AREA AT THE MEDIAL RIGHT BREAST. DUE TOFAMILY HISTORY OF BREAST CANCER, PATIENT WOULD PREFER TO HAVE THIS AREA BIOPSIED UNDER ULTRASOUND. RESULT CODE: 4 Suspicious Abnormality - Biopsy Considered DENSITY CODE: 1 (<25% glandular) FOLLOW UP: BIO The false-negative rate of mammography is approximately 10-percent. Management of a palpable abnormality must be based on clinical grounds. Patient was entered into a reminder system with a target due date for thenext mammogram. Impression dictated by: Yancy Carroll M.D.01/30/2023 11:30 AM Dictation Location: [facility] Transcribed By: ANNIE 01/30/23 1130 Dictated By: Yancy Carroll MD 01/30/23 0976 Signed By: <Electronically signed by MD Yancy Carroll in OV> 01/30/23 1130 us Marek Zapata DO IMG US PROCEDURES Final Resul t documented in this encounter Visit Diagnoses Not on filedocumented in this encounter Care Teams Paint Roller Cover Machine Setter Relationship Specialty Start Date End Date Alex Theodore DO PCP - General Family Medicine 08/15/22 documented as of this encounter
--- OUTSIDE RECORDS SUMMARY | 2024-10-06 10:28 | XMS_ITS | Encounter Summary ---
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 Not on file Not on file documented as of this encounter Plan of Treatment Upcoming Encounters Date Type Department Care Team (Late st Contact Info) Description 10/08/2024 3:15 PM EDT Office Visit [facility] [address] [place] [address] Marek Zapata, [address] [place] [address] documented as of this encounter Procedures Procedure Name Priority Date/Time Associated Diagnosis Comments BI MAMMOGRAM DIAGNOSTIC RIGHT 02/04/2023 1:12 PM EST documented in this encounter Results * Right diagnostic mammogram (02/04/2023 1:12 PM EST) Anatomical Region Laterality Modality Breast Right Mammography 02/04/2023 1:12 PM EST Impressions 02/05/2023 9:13 AM EST STATUS POST ULTRASOUND GUIDED VACUUM-ASSISTED CORE BIOPSIES OF THE RIGHT BREAST. RESULT CODE: NL Impression dictated by: Nael Villaseñor Jr., DCarolinaOCarolina02/04/2023 1:43 PM Dictation Location: [facility] Tech: Sulma Peters Transcribed By: ANNIE 02/04/23 1343 Dictated By: Nael Villaseñor Jr, DO 02/04/23 1312 Signed By: <Electronically signed by Nael Villaseñor Jr, DO in OV> 02/04/23 1343 Narrative 02/05/2023 9:13 AM EST [facility] Main [address] [address] Ultrasound Report Signed with Dilan Patient: Noris Sprague MR#: [id number] 18 : 1985 Acct:[id number] Age/Sex: 37 / F ADM Date: 02/04/23 Loc: JESSICA Room: Type: [facility] Attending Dr: Ahmet Dow DO Ordering Provider: Ahmet Dow DO Date of Service: 02/04/23 US/US breast ndl core biopsy RT: ABN MAMM ([id number]) MM/MM post biopsy RT w/CAD: POST BIOPSY CLIP PLACEMENT Copies to: Ahmet Dow DO ADDENDUM 1 Addendum for pathology: Right breast mass 3:00 position 5 cm from nipple: Benign fibroadenomatous tumor. No evidence of malignancy. Finding is benign and concordant with imaging. Diagnostic mammography and ultrasound in 6 months is recommended for further evaluation of the nonbiopsied cystic areas involving both breasts. Impression dictated by: Nael Villaseñor Jr., D.OCarolina02/08/2023 12:54 PM Dictation Location: [facility] Addendum Dictated By: Nael Villaseñor Jr, DO Addendum Signed By: <Electronically signed by Nael Villaseñor Jr, DO in OV> 02/08/23 125 Addendum Cosigned By: DD/ TD/TT: 02/08/23 ULTRASOUND GUIDED VACUUM-ASSISTED HOLOGIC ATEC SYSTEM CORE BIOPSIES OF THE RIGHT BREAST: CLINICAL DATA: Breast mass 3:00 position of the right breast PROCEDURE: The risks, benefits and alternatives to an ultrasound guided vacuum-assisted Hologic ATEC system core biopsy procedure were discussed with the patient and written informed consent was obtained. Ultrasonographic survey of the 3:00 position of the right breast was performed by mineral technologist . The patient's overlying skin was anesthetized with 1% lidocaine. The deeper soft tissues up to and around the mass were anesthetized with lidocaine mixed with epinephrine. Following this, multiple core biopsies of the right breast mass were performed using a 12-gauge [employer] vacuum-assisted core biopsy needle under ultrasound guidance. Multiple core biopsy specimens were obtained. A metallic post biopsy marker was then placed. Post procedure mammograms were performed. The patient tolerated the procedure well without immediate postprocedural complication. POSTPROCEDURE MAMMOGRAMS: Craniocaudal and true lateral views of the right breast were performed using low dose digital technique. The postbiopsy marker is seen at the biopsy site without evidence of migration. US/US breast ndl core biopsy RT Procedure Note Radiology, Radiologist, - 02/11/2023 [facility] [place] [address] Ultrasound Report Signed with Addenda Patient: Noris Sprague MMR#: [id number] 18 : 1985Acct:[id number] Age/Sex: 37 / FADM Date: 02/04/23 Loc: JESSICA Room:Type: [facility] Attending Dr: Ahmet Dow DO Ordering Provider: Ahmet Dow DO Date of Service: 02/04/23 US/US breast ndl core biopsy RT: ABN MAMM ([id number]) MM/MM post biopsy RT w/CAD: POST BIOPSY CLIP PLACEMENT Copies to: Ahmet Dow DO ADDENDUM 1 Addendum for pathology: Right breast mass 3:00 position 5 cm from nipple: Benign fibroadenomatoustumor. No evidence of malignancy. Finding is benign and concordant with imaging. Diagnostic mammography andultrasound in 6 months is recommended for further evaluation of the nonbiopsied cystic areasinvolving both breasts. Impression dictated by: Nael Villaseñor Jr., D.OCarolina02/08/2023 12:54 PM Dictation Location: [place] [address] Addendum Dictated By: Nael Villaseñor Jr, DO Addendum Signed By: <Electronically signed by Jr Ramos DO in OV> 02/08/23 1254 Addendum Cosigned By: DD/ TD/TT: 02/08/23 ULTRASOUND GUIDED VACUUM-ASSISTED HOLOGIC ATEC SYSTEM CORE BIOPSIES OF THERIGHT BREAST: CLINICAL DATA: Breast mass 3:00 position of the right breast PROCEDURE: The risks, benefits and alternatives to an ultrasound guidedvacuum-assisted Hologic ATEC system core biopsy procedure were discussed with the patient and writteninformed consent was obtained. Ultrasonographic survey of the 3:00 position of the right breast wasperformed by mineral technologist . The patient's overlying skin was anesthetized with 1% lidocaine. Thedeeper soft tissues up to and around the mass were anesthetized with lidocaine mixed with epinephrine.Following this, multiple core biopsies of the right breast mass were performed using a 12-gauge[employer]s vacuum-assisted core biopsy needle under ultrasound guidance. Multiple core biopsy specimenswere obtained. A metallic post biopsy marker was then placed. Post procedure mammograms wereperformed. The patient tolerated the procedure well without immediate postprocedural complication. POSTPROCEDURE MAMMOGRAMS: Craniocaudal and true lateral views of the rightbreast were performed using low dose digital technique. The postbiopsy marker is seen at the biopsy site without evidence ofmigration. US/US breast ndl core biopsy RT IMPRESSION: STATUS POST ULTRASOUND GUIDED VACUUM-ASSISTED CORE BIOPSIES OF THE RIGHTBREAST. RESULT CODE: NL Impression dictated by: Nael Villaseñor Jr., Alisha02/04/2023 1:43 PM Dictation Location: [facility] Tech: Sulma Peters Transcribed By: ANNIE 02/04/23 1343 Dictated By: Nael Villaseñor Jr, DO 02/04/23 1312 Signed By: <Electronically signed by Nael Villaseñor Jr, DO inOV> 02/04/23 1343 Ahmet Dow DO IMG BI PROCEDURES Edited Result - Final documented in this encounter Visit Diagnoses Not on filedocumented in this encounter Care Teams Director Of Curriculum Relationship Specialty Start Date End Date Alex Theodore DO PCP - General Family Medicine 08/15/22 documented as of this encounter
== END 2024-10-06 10:27 | disposition home or self-care (01) ==
PROVIDERS: Visit Provider Orthopaedic Surgery
DX: M25.562 Pain in left knee (principal)
CPT/HCPCS: 72170; 73560; 73564